=== PATIENT | male | born 1980 | race Caucasian/White ===

== ENCOUNTER 2018-11-08 18:35 | Emergency (ER) | payer SELFPAY ==
[~2018-11-08] VITALS: Ht 182.9 cm; Wt 100.0 kg
[2018-11-08 18:38] VITALS: BP 167/78
== END 2018-11-08 21:00 | disposition left against medical advice (07) ==
LOC: ER 20:20
DX: F10.129 Alcohol abuse with intoxication, unspecified (principal); S09.8XXA Other specified injuries of head, initial encounter; Y90.9 Presence of alcohol in blood, level not specified; S01.81XA Laceration without foreign body of other part of head, initial encounter; Y35.893A Legal intervention involving other specified means, suspect injured, initial encounter; Y93.89 Activity, other specified; Y92.9 Unspecified place or not applicable
CPT/HCPCS: 99283